=== PATIENT | female | born 1960 | race Caucasian/White ===

== ENCOUNTER → 2017-05-18 | Outpatient (CLI) | payer BC ==
--- NOTE | ~2017-05-18 | ECH ---
Transthoracic Echocardiography Report (TTE) Demographics Patient Name LULI ARAUJO Date of Study 05/18/2017 Patient Number [id number] Visit Number [id number] Date of 1960 Room Number Accession Number [id number] Gender Female Age 56 year(s) Referring Carlos Segundo Job Site Superintendent Leila Salazar [facility] Physician Physician Interpreting Jaylan Tellez [employer] Physician Supervising Ordering Physician Carlos Segundo MD, MD/P Nurse Stress Distribution Warehouse Manager Conclusions Contractility Score Summary Normal Left Ventricular contractility was noted. Summary Technically good exam. The estimated left ventricular ejection fraction is 60-65%. The left ventricle is mildly dilated . Diastolic assessment reveals Grade I diastolic dysfunction. The left atrium is mildly dilated by LA volume index measurement. Trivial mitral regurgitation by color Doppler. There is mild aortic regurgitation by color Doppler. Procedure Type of Study TTE procedure:Echo Complete SF. Procedure Date Date: 05/18/2017 Start: 12:36 PM Technical Quality: Good visualization Indications:Murmur. Appropriate Use Criteria: 9 Height: 64 inches Weight: 186 pounds BSA: 1.9 m Rhythm: NSR HR: 78 bpm BP: 150/88 mmHg M-Mode/2D Measurements LV Diastolic Dimension: 5.69 cm LV Systolic Dimension: 4.51 cm LV Septum Diastolic: 0.64 cm LV PW Diastolic: 0.71 cm AO Root Dimension: 2.66 cm LA Dimension: 4.11 cm RV Diastolic Dimension: 2.97 cm LA volume: 70.7 ml LA volume index: 37 ml/m LVOT: 1.95 cm RV Base: 3.2 cm RV Mid: 1.7 cm TAPSE: 2.8 cm TDI-S': 13 cm/s Doppler Measurements AV Peak Velocity: 1.68 m/s MV Peak E-Wave: 0.77 m/s AV Peak Gradient: 11.33 mmHg MV Peak A-Wave: 1.08 m/s AV Mean Gradient: 6.1 mmHg MV E/A Ratio: 0.71 MV P1/2t: 77.7 msec AV P1/2t: 475.2 msec TR Velocity:2.59 m/s MV Deceleration Time: 331.5 msec TR Gradient:26.83 mmHg MV Area (PHT): 2.83 cm Estimated RAP:3 mmHg PV Peak Velocity: 1.13 m/s Estimated RVSP: 30 mmHg PV Peak Gradient: 5.11 mmHg E' Septal Velocity: 0.11 m/s Estimated PASP: 29.83 mmHg E' Lateral Velocity: 0.1 m/s A' Septal Velocity: 0.1 m/s A' Lateral Velocity: 0.15 m/s RA Area: 15.41 cm Findings Left Ventricle The left ventricle is mildly dilated . Diastolic assessment reveals Grade I diastolic dysfunction. Right Ventricle Normal right ventricle structure and function. Left Atrium The left atrium is mildly dilated by LA volume index measurement. Right Atrium Normal right atrial size. Mitral Valve Normal mitral valve structure and function. Trivial mitral regurgitation by color Doppler. Aortic Valve The aortic valve is mildly sclerotic. There is mild aortic regurgitation by color Doppler. Tricuspid Valve Normal tricuspid valve structure and function. Trivial tricuspid regurgitation by color Doppler. Normal pulmonary pressures. Pulmonic Valve Normal pulmonic valve structure and function. Trivial pulmonic valve regurgitation by color Doppler. Pericardial Effusion No evidence of pericardial effusion. Miscellaneous Visualized portions of the aortic root and ascending aorta appear normal in size. Pleural Effusion No evidence of pleural effusion. Contractility Score LV regional wall motion:(0-Non visualized 1-Normal 2-Hypokinesis 3-Akinesis 4-Dyskinesis 5-Aneurysm) Signature
== END | disposition home or self-care (01) ==
LOC: CARD 12:28
DX: R01.1 Cardiac murmur, unspecified (principal); I51.7 Cardiomegaly; I34.0 Nonrheumatic mitral (valve) insufficiency; I35.1 Nonrheumatic aortic (valve) insufficiency